=== PATIENT | female | born 1960 | race Caucasian/White ===

== ENCOUNTER 2017-07-12 10:56 | Day surgery (SDC) | payer BC ==
[~2017-07-12] VITALS: Ht 165.1 cm; Wt 55.8 kg
[~2017-07-12 10:56] MED LIST: BUSPAR10 MG PO; LAMICTAL200 MG PO; MELATONIN3 MG PO; MOBIC15 MG PO; MOTRIN800 MG PO; PROZAC20 MG PO; SYNTHROID50 MCG PO; TYLENOL REGULA325 MG PO
[2017-07-12 11:40] VITALS: BP 118/56
[2017-07-12 17:10] VITALS: BP 124/84
[2017-07-12 18:00] VITALS: BP 115/62
== END 2017-07-12 18:30 | disposition home or self-care (01) ==
LOC: SDC 10:56
PROC: 0RGX04Z Fusion of Left Finger Phalangeal Joint with Internal Fixation Device, Open Approach (ICD-10-PCS; principal; 2017-07-12)
DX: M19.042 Primary osteoarthritis, left hand (principal); E03.9 Hypothyroidism, unspecified; F32.9 Major depressive disorder, single episode, unspecified; R56.9 Unspecified convulsions; Z82.61 Family history of arthritis; Z82.49 Family history of ischemic heart disease and other diseases of the circulatory system; Z83.42 Family history of familial hypercholesterolemia
CPT/HCPCS: 73140; 76000; J0131; J0690; J1170; J2175; J2250; J2405; J3010